=== PATIENT | male | born 1975 | race Caucasian/White ===

== ENCOUNTER 2025-03-24 09:10 | Emergency (ER) | payer OTHER, SELFPAY ==
[2025-03-24 09:20] VITALS: BP 148/86; PULSE 100; TEMP 36.8; O2SAT 100; BMI 32.4
--- NOTE | 2025-03-24 09:37 | ED.GENADUL1 ---
HPI HPI - General Adult General Chief complaint: Ear Stated complaint: L EAR PAIN Time Seen by Provider: 03/24/25 09:26 Mode of arrival: walk-in History of Present Illness HPI narrative: 50-year-old male presents to the emergency department for chief complaint of left ear pain. He had recently been seen at another emergency department and was told that he has earwax in his ear and he was sent home on Debrox. He states it has not gotten better. No injury and no sore throat and no pain in the right ear. He has had this for several days and the pain is moderate. Related Data Home Medications ?Medication ?Instructions ?Recorded ?Confirmed dextroamphetamine-amphetamine ER 30 mg PO DAILY 03/24/25 03/24/25 30 mg 24hr capsule,extend release diazepam 10 mg tablet 10 mg PO DAILY 03/24/25 03/24/25 Allergies Allergy/AdvReac Type Severity Reaction Status Date / Time duloxetine (From Cymbalta) AdvReac Severe Unknown Verified 03/24/25 09:20 Penicillins AdvReac Severe Unknown Verified 03/24/25 09:20 Review of Systems ROS Narrative A ten point review of systems is negative except as noted above. PFSH PFSH Social History Little interest or pleasure in doing things: not at all Feeling down, depressed, or hopeless: not at all Exam Narrative Exam Narrative: Nurses note and vital signs reviewed and patient is not hypoxic. General: The patient appears well and in no apparent distress. Patient is resting comfortably on cart. Skin: Warm, dry, no pallor noted. There is no rash noted. Head: Normocephalic, atraumatic Eye: Normal conjunctiva, no drainage Ears, Nose, Mouth, and Throat: oral mucosa is moist. Nares patent. Right TM appears normal. Left is obscured by large amount of cerumen. Cardiovascular: Regular Rate and Rhythm Respiratory: Patient is in no distress, no accessory muscle use Back: non-tender GI: Soft and nontender Musculoskeletal: Soft and nontender Neurological: A&O, normal speech Psychiatric: Cooperative Constitutional Vital Signs, click to edit/add: Last Vital Signs Temp 98.2 F 03/24/25 09:20 Pulse 100 H 03/24/25 09:20 Resp 18 03/24/25 09:20 BP 148/86 H 03/24/25 09:20 Pulse Ox 100 03/24/25 09:20 O2 Del Method Room Air 03/24/25 09:20 Course Vital Signs Vital signs: Vital Signs Temperature 98.2 F 03/24/25 09:20 Pulse Rate 100 H 03/24/25 09:20 Respiratory Rate 18 03/24/25 09:20 Blood Pressure 148/86 H 03/24/25 09:20 Pulse Oximetry 100 03/24/25 09:20 Oxygen Delivery Method Room Air 03/24/25 09:20 Temperature 98.2 F 03/24/25 09:20 Pulse Rate 100 H 03/24/25 09:20 Respiratory Rate 18 03/24/25 09:20 Blood Pressure 148/86 H 03/24/25 09:20 Pulse Oximetry 100 03/24/25 09:20 Oxygen Delivery Method Room Air 03/24/25 09:20 Medical Decision Making MDM Narrative Medical decision making narrative: We have irrigated his ear with hydrogen peroxide and then Colace. Repeat examination at 10:50 AM shows complete removal of all cerumen. The TM is normal and intact. External canal is swollen and erythematous. He will be treated with Cortisporin and was given handwritten prescription. Treatment diagnosis and follow-up were discussed with the patient. Differential Diagnosis Differential Diagnosis: Cerumen impaction, otitis externa, otitis media Discharge Plan Discharge Chief Complaint: Ear Clinical Impression: Cerumen impaction, Otitis externa Patient Disposition: Home, Self-Care Time of Disposition Decision: 10:50 Condition: Good Mode of Transportation: Private Vehicle Prescriptions / Home Meds: No Action dextroamphetamine-amphetamine 30 mg capsule,extended release 24hr 30 mg PO DAILY diazepam 10 mg tablet 10 mg PO DAILY Print Language: [place] Instructions: Swimmer's [facility] (ED) Additional Instructions: Handwritten prescription for Cortisporin given Referrals: Edelmira Bear [Primary Care Provider] - 1 week
[2025-03-24] MEDS: DOCUSATE SODIUM 100 MG CAPSULE 200 MG PO (10:28)
[2025-03-24 11:01] VITALS: BP 136/86; PULSE 86; O2SAT 99
== END 2025-03-24 11:02 | disposition home or self-care (01) ==
PROVIDERS: Emergency Provider Emergency Medicine; PCP Nurse Practitioner Family
DX: H60.92 Unspecified otitis externa, left ear (principal); H61.22 Impacted cerumen, left ear; H92.02 Otalgia, left ear
CPT/HCPCS: 99282